=== PATIENT | female | born 1960 | race African-American/Black ===

== ENCOUNTER 2016-08-20 07:05 | Emergency (ER) | payer MEDICARE, OTHER ==
[2016-08-20] MEDS ORDERED: KETOROLAC 60 MG/2 ML VIAL IM STA (07:32)
--- NOTE | 2016-08-20 07:34 | ED ---
General Adult HPI - General Chief complaint: Extremity Problem,Nontraumatic Stated complaint: hip pain Time Seen by Provider: 08/20/16 07:10 Source: patient, EMS, RN notes reviewed Mode of arrival: EMS Limitations: no limitations - History of Present Illness Initial comments: This is a 56-year-old female who presents emergency Department complaining of right hip pain. Patient states it started this morning when she woke up she was able to get around using a chair. Patient states she walked across her chest and she thinks that irritated it. Patient denies any direct trauma or injury to the hip. Patient denies any knee pain patient denies leg pain. Patient denies any area of swelling or redness. Patient states shortly takes Tylenol No. 4 and it does not help. She does not take any anti-inflammatories because of the process her stomach occasionally. Patient denies any other problems at this time. Patient denies any fever or chills. - Related Data Allergies Allergy/AdvReac Type Severity Reaction Status Date / Time No Known Allergies Allergy Verified 08/20/16 07:19 Review of Systems ROS Statement: Those systems with pertinent positive or pertinent negative responses have been documented in the HPI. ROS Other: All systems not noted in ROS Statement are negative. Past Medical History Past Medical History: Hypertension, Seizure Disorder Additional Past Medical History / Comment(s): heart disease History of Any Multi-Drug Resistant Organisms: None Reported Past Surgical History: No Surgical Hx Reported Smoking Status: Former smoker Past Alcohol Use History: None Reported Past Drug Use History: None Reported General Exam - General Exam Comments Initial Comments: GENERAL Patient is well-developed and well-nourished. Patient is in mild distress. EYES Patient's pupils are equal and round. Extraocular motion is intact SKIN Unremarkable NEURO The patient is alert and oriented 3 PYSCH Patient has normal interpersonal interactions. MUSCULOSKELETAL Patient has some mild tenderness to palpation of the lateral aspect of the hip she does have full range of motion of the hip. Limitations: no limitations Course Vital Signs 08/20/16 07:19 Temperature 97.7 F Pulse Rate 63 Respiratory 18 Rate Blood Pressure 131/66 O2 Sat by Pulse 98 Oximetry Medical Decision Making - Medical Decision Making Pelvis x-ray shows no acute abnormality. Disposition Clinical Impression: Greater trochanteric bursitis Disposition: HOME SELF-CARE Condition: Good Instructions: Hip Bursitis (ED) Additional Instructions: Patient should take Aleve twice a day. Patient should follow-up with orthopedic surgeon if symptoms continue. Time of Disposition: 08:34
--- NOTE | 2016-08-20 08:48 | XR ---
EXAMINATION TYPE: XR pelvis AP view DATE OF EXAM: 08/20/2016 8:15 AM CLINICAL HISTORY: pain TECHNIQUE: Single view the pelvis is submitted. FINDINGS: No evidence for fracture, dislocation or bony lesion. Joint spaces are mildly narrowed. SI joints appear symmetric. Calcified uterine/adnexal masses are seen to the right of midline. IMPRESSION: 1. No acute fracture or dislocation seen. ICD 10 NO FRACTURE, INITIAL EVALUATION
[2016-08-20 09:19] VITALS: BP 105/52; PULSE 71; RESP 20; TEMP 97.2
== END 2016-08-20 09:19 | disposition home or self-care (01) ==
LOC: EC 07:05
DX: M70.61 Trochanteric bursitis, right hip (principal); Z87.891 Personal history of nicotine dependence
CPT/HCPCS: 72170; 99284; 96372; J1885